=== PATIENT | female | born 1990 | race Caucasian/White ===

== ENCOUNTER 2016-10-25 00:31 | Emergency (ER) | payer MEDICAID ==
[~2016-10-25] VITALS: Ht 167.6 cm; Wt 52.0 kg
[~2016-10-25 00:31] MED LIST: KLON2TAB PO; LORTA5 PO; SUBO8MIS SL
[2016-10-25 00:32] VITALS: BP 137/78; PULSE 78; RESP 16; TEMP 97.6; O2SAT 98
--- NOTE | 2016-10-25 01:10 | PD ---
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 Patient says she has been very uncomfortable because of this burning/pain sensation. This is associated with dysuria when she urinates but it's there even when she is not urinating. She took one of her friends ciprofloxacin 3 tabs which has subsided the symptoms a little bit but she still has it. She has history of chlamydia in the past and she is concerned if she is happened again. She had unprotected sex with a new partner one week ago. Vital signs were otherwise stable. She does appear little anxious. [facility] Past Medical History Narrative Medical List of her past medical, surgical, social and family history was reviewed from the nursing note. ?: Not LMP: 2 DAYS AGO Menopausal: No : 1 Social History Alcohol Use: No Tobacco Use: Yes (1/2 PPD) Substance Use: No Allergies-Medications (Allergen,Severity, Reaction): Coded Allergies: No Known Allergies (Verified , 10/25/16) Comments No known drug allergies. Reported Meds & Prescriptions Reported Meds & Active Scripts Active Flagyl (Metronidazole) 250 Mg Tab 250 Mg PO TID 7 Days Doxycycline Hyclate 100 Mg Cap 100 Mg PO BID 7 Days Macrobid (Nitrofurantoin Monoh/Nitrofur Macro) 100 Mg Cap 100 Mg PO BID 7 Days Reported Xanax (Alprazolam) 0.5 Mg Tab 0.5 Mg PO BID PRN Narrative Medication List of her medications reviewed from the nursing note. Review of Systems Except as stated in HPI: all other systems reviewed are Neg Physical Exam Narrative GENERAL: Awake, alert, anxious SKIN: Warm and dry. HEAD: Atraumatic. Normocephalic. EYES: Pupils equal and round. No scleral icterus. No injection or drainage. ENT: No nasal bleeding or discharge. Mucous membranes pink and moist. NECK: Trachea midline. No JVD. CARDIOVASCULAR: Regular rate and rhythm. No murmur appreciated. RESPIRATORY: No accessory muscle use. Clear to auscultation. Breath sounds equal bilaterally. GASTROINTESTINAL: Abdomen soft, non-tender, nondistended. Hepatic and splenic margins not palpable. : Patient is clean shaved in the pubic area. Some folliculitis. No significant discharge on speculum exam. Swabs were collected. Positive CMT and adnexal tenderness. MUSCULOSKELETAL: No obvious deformities. No clubbing. No cyanosis. No edema. NEUROLOGICAL: Awake and alert. No obvious cranial nerve deficits. Motor grossly within normal limits. Normal speech. PSYCHIATRIC: Appropriate mood and affect; insight and judgment normal. Data Data Last Documented VS Orders Urinalysis - C+S If Indicated (10/25/16 01:33) Gc And Chlamydia Pcr (10/25/16 01:33) Wet Prep Profile (10/25/16 01:33) Urine Culture (10/25/16 01:50) Nitrofurantoin Monohyd Macrocr (Macrobid (10/25/16 02:15) Metronidazole (Flagyl) (10/25/16 03:00) Doxycycline (Vibramycin) (10/25/16 03:00) Ceftriaxone Inj (Rocephin Inj) (10/25/16 03:00) Labs Laboratory Tests Test 10/25/16 01:50 Urine Color YELLOW Urine Turbidity HAZY Urine pH 6.0 Urine Specific [place] 1.027 Urine Protein TRACE mg/dL Urine Glucose (UA) NEG mg/dL Urine Ketones NEG mg/dL Urine Occult Blood NEG Urine Nitrite NEG Urine Bilirubin NEG Urine Urobilinogen 2.0 MG/DL Urine Leukocyte Esterase SMALL Urine RBC 4 /hpf Urine WBC 16 /hpf Urine Squamous Epithelial 6 /hpf Cells Urine Bacteria RARE /hpf Urine Mucus FEW /lpf Microscopic Urinalysis Comment CULTURE INDICATED Clue Cells (Wet Prep) PRESENT Vaginal Trichomonas (Wet Prep) NONE SEEN Vaginal Yeast (Wet Prep) NONE SEEN Chlamydia trachomatis DNA NOT DETECTED (PCR) Neisseria gonorrhoeae DNA NOT DETECTED (PCR) MDM Medical Decision Making Medical Screen Exam Complete: Yes Emergency Medical Condition: Yes Medical Record Reviewed: Yes Differential Diagnosis STD, UTI, vaginitis Narrative Course 3:45 AM patient was given IM Rocephin, by mouth Macrobid, by mouth Flagyl and by mouth doxycycline. She was positive for clue cells. She will be discharged home on these prescriptions. Procedures EKG Prior to Arrival: No Diagnosis Primary Impression: UTI (urinary tract infection) Qualified Code: N30.00 - Acute cystitis without hematuria Additional Impression: Bacterial vaginosis Referrals: Primary Care Physician 1 week Additional Instructions: Please return to the ER if the condition worsens or any other new concerns. Otherwise follow-up with your primary care. Take the medications as per the prescription direction. Med/Other Pt SpecificInfo: Prescription(s) given Scripts Metronidazole (Flagyl)250 Mg [id number] Mg PO TID 7 Days Ref 0 Prov:Louann Thompson MD 10/25/16 Doxycycline Hyclate 100 Mg [id number] Mg PO BID 7 Days Ref 0 Prov:Louann Thompson MD 10/25/16 Nitrofurantoin Monohydrate Macrocrystals (Macrobid)100 Mg [id number] Mg PO BID 7 Days Ref 0 Prov:Louann Thompson MD 10/25/16 Disposition: DISCHARGE HOME Condition: Stable Louann Thompson MD Oct 25, 2016 01:10 Doxycycline Hyclate 100 Mg [id number] Mg PO BID 7 Days Ref 0 Prov:Louann Thompson MD 10/25/16 Nitrofurantoin Monohydrate Macrocrystals (Macrobid)100 Mg [id number] Mg PO BID 7 Days Ref 0 Prov:Louann Thompson MD 10/25/16 Disposition: 01 DISCHARGE HOME Condition: Louann Coffey MD Oct 25, 2016 01:10
[2016-10-25] MEDS ORDERED: ALPR.5 PO (01:15)
[2016-10-25 02:07] LABS: BACTERIA, URINE RARE /hpf; BLOOD, URINE NEG (NEG); COMMENT (UR) CULTURE INDICATED; CULTURE IF INDICATED CULTURE INDICATED; GLUCOSE,URINE NEG (NEG); KETONE, URINE NEG (NEG); MUCUS URINE FEW /lpf (OCC); NITRITE,URINE NEG (NEG); SQUAMOUS EPITHELIAL CELL URINE 6 /hpf (0-5); URINE COLOR YELLOW (YELLW/STRAW)
[2016-10-25] MEDS ORDERED: NITROFURANTOIN MONOHYD MACROCR 100 MG CAP PO ONE (02:15)
[2016-10-25] MEDS ORDERED: DOXYCYCLINE HYCLATE 100 MG CAP PO ONE (03:00)
[2016-10-25] MEDS ORDERED: cefTRIAXone 250 MG VIAL IM ONE (03:00)
[2016-10-25] MEDS ORDERED: metroNIDAZOLE 500 MG TAB PO ONE (03:00)
[2016-10-25 03:38] LABS: CHLAMYDIA PCR NOT DETECTED (NOT DETECT); NEISSERIA PCR NOT DETECTED (NOT DETECT)
[2016-10-25] MEDS ORDERED: METR250 PO (03:53)
[2016-10-25] MEDS ORDERED: MACR100C2 PO (03:53)
[2016-10-25] MEDS ORDERED: DOXY100C PO (03:53)
== END 2016-10-25 04:18 | disposition home or self-care (01) ==
LOC: NEPE 00:31
DX: N39.0 Urinary tract infection, site not specified (principal); N76.0 Acute vaginitis; F17.210 Nicotine dependence, cigarettes, uncomplicated
CPT/HCPCS: 81001; 87086; 87210; 87491; 87591; 96372; 99283; J0696

== ENCOUNTER 2017-06-19 18:52 | Emergency (ER) | payer MEDICAID ==
[~2017-06-19 18:52] MED LIST changes: +ALPR.5 PO; +DOXY100C PO; -KLON2TAB PO; -LORTA5 PO; +MACR100C2 PO; +METR250 PO; -SUBO8MIS SL
[2017-06-19 18:54] VITALS: BP 123/74; PULSE 78; RESP 16; TEMP 98.4; O2SAT 99
--- NOTE | 2017-06-19 21:09 | PD ---
HPI Chief Complaint: Related Problem Time Seen by Provider: 20:56 Travel History International Travel<30 days: No Contact w/Intl Traveler<30days: No Traveled to known affect area: No History of Present Illness HPI 27 years old female complains of low abdominal pain and low back pain. Patient states that the pain started yesterday. Patient states the pain is cramping pain intermittent pain localized to lower abdomen and low back area. Patient denies any pain radiation. Patient denies any dysuria or frequency. Patient denies any vaginal discharge or bleeding. Patient denies any fever chills. Patient states that she had vaginal bleeding for one day last week. Patient states that the vaginal bleeding stopped completely and she has not had any vaginal bleeding bleeding since then. Patient states that the bleeding was heavy. Patient states that she has history irregular menstruation period. Patient's 4 para 1. Patient states that her last menstruation period was 2 months ago. PFSH Past Medical History Anxiety: Yes (xanax prescription ) Diminished Hearing: No Tetanus Vaccination: Unknown Influenza Vaccination: No ?: LMP: 04/20/17 Menopausal: No : 5 Para: 1 Miscarriage: 2 : 1 Past Surgical History Surgical History: No Previous Surgery Social History Alcohol Use: No Tobacco Use: Yes (pack a week ) Substance Use: No Allergies-Medications (Allergen,Severity, Reaction): Coded Allergies: No Known Allergies (Verified Adverse Reaction, Unknown, 06/19/17) Reported Meds & Prescriptions Reported Meds & Active Scripts Active Reported Xanax (Alprazolam) 0.5 Mg Tab 0.5 Mg PO BID PRN Review of Systems General / Constitutional: No: Fever Eyes: No: Visual changes HENT: No: Headaches Cardiovascular: No: Chest Pain or Discomfort Respiratory: No: Shortness of Breath Gastrointestinal: Positive: Abdominal Pain Genitourinary: Positive: Pelvic Pain, No: Dysuria Musculoskeletal: No: Pain Skin: No Rash Neurologic: No: Weakness Psychiatric: No: Depression Endocrine: No: Polydipsia Hematologic/Lymphatic: No: Easy Bruising Physical Exam Narrative GENERAL: Well-nourished, well-developed patient. SKIN: Focused skin assessment warm/dry. HEAD: Normocephalic. EYES: No scleral icterus. No injection or drainage. NECK: Supple, trachea midline. No JVD or lymphadenopathy. CARDIOVASCULAR: Regular rate and rhythm without murmurs, gallops, or rubs. RESPIRATORY: Breath sounds equal bilaterally. No accessory muscle use. GASTROINTESTINAL: Abdomen soft, nondistended. Patient has mild tenderness on palpation lower abdomen. No rebound tenderness. No mass. MUSCULOSKELETAL: No cyanosis, or edema. BACK: Nontender without obvious deformity. No CVA tenderness. 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: Data Data Last Documented VS Vital Signs Date Time Temp Pulse Resp B/P (MAP) Pulse Ox O2 Delivery O2 Flow Rate FiO2 06/19/17 23:41 06/19/17 18:54 98.4 78 16 99 Orders Orders Beta Hcg (Quant/Titer) (06/19/17 21:04) Complete Blood Count With Diff (06/19/17 21:04) Basic Metabolic Panel (Bmp) (06/19/17 21:04) Complete Rh (06/19/17 21:04) Urinalysis - C+S If Indicated (06/19/17 21:04) Iv Access Insert/Monitor (06/19/17 21:04) Ondansetron Odt (Zofran Odt) (06/19/17 21:30) Ed Urine Pregnancytest Poc (06/19/17 21:31) Us Pelvis (Ques Preg/Ectopic) (06/19/17 ) Labs Laboratory Tests Test 06/19/17 21:21 White Blood Count 7.9 TH/MM3 Red Blood Count 4.68 MIL/MM3 Hemoglobin 13.5 GM/DL Hematocrit 39.7 % Mean Corpuscular Volume 84.9 FL Mean Corpuscular Hemoglobin 28.9 PG Mean Corpuscular Hemoglobin Concent 34.1 % Red Cell Distribution Width 12.7 % Platelet Count 262 TH/MM3 Mean Platelet Volume 8.0 FL Neutrophils (%) (Auto) 76.4 % Lymphocytes (%) (Auto) 17.0 % Monocytes (%) (Auto) 6.1 % Eosinophils (%) (Auto) 0.2 % Basophils (%) (Auto) 0.3 % Neutrophils # (Auto) 6.1 TH/MM3 Lymphocytes # (Auto) 1.3 TH/MM3 Monocytes # (Auto) 0.5 TH/MM3 Eosinophils # (Auto) 0.0 TH/MM3 Basophils # (Auto) 0.0 TH/MM3 CBC Comment DIFF FINAL Differential Comment Urine Color YELLOW Urine Turbidity CLEAR Urine pH 5.5 Urine Specific [place] 1.021 Urine Protein NEG mg/dL Urine Glucose (UA) NEG mg/dL Urine Ketones NEG mg/dL Urine Occult Blood NEG Urine Nitrite NEG Urine Bilirubin NEG Urine Urobilinogen LESS THAN 2.0 MG/DL Urine Leukocyte Esterase TRACE Urine RBC 1 /hpf Urine WBC 3 /hpf Urine Squamous Epithelial Cells 1 /hpf Urine Bacteria RARE /hpf Urine Mucus FEW /lpf Microscopic Urinalysis Comment CULT NOT INDICATED Blood Urea Nitrogen 10 MG/DL Creatinine 0.64 MG/DL Random Glucose 88 MG/DL Calcium Level 9.6 MG/DL Sodium Level 135 MEQ/L Potassium Level 3.6 MEQ/L Chloride Level 102 MEQ/L Carbon Dioxide Level 25.1 MEQ/L Anion Gap 8 MEQ/L Estimat Glomerular Filtration Rate 112 ML/MIN Human Chorionic Gonadotropin, Quant [id number] MIU/ML [facility] Medical Decision Making Medical Screen Exam Complete: Yes Emergency Medical Condition: Yes Interpretation(s) Last Impressions Pelvis Ultrasound 06/19/17 0000 Signed Impressions: Service Date/Time: June 22:02 - CONCLUSION: 1. Intrauterine at 11 weeks. Findings of subchorionic hemorrhage as well as fluid. Followup examination is recommended if clinically indicated. Denzel Boyle MD 23:17 PM. CBC within normal limit. BMP within normal limits. Beta hCG [id number]. UA is negative. Differential Diagnosis Differential diagnosis including pelvic pain during , threatened AB, incomplete AB, completed AB, ectopic . Narrative Course 27 years old female with altered vomiting low back pain. Patient is 2 months by date. Patient had heavy vaginal bleeding for one day last week. Diagnosis Primary Impression: Subchorionic hemorrhage Qualified Codes: O41.8X10 - Other specified disorders of amniotic fluid and membranes, first trimester, not applicable or unspecified; O46.8X1 - Other antepartum hemorrhage, first trimester Patient Instructions: General Instructions Additional Instructions: Advised vitamin with iron. Tylenol for pain. Follow-up with local OB. Advised patient to return if increased abdominal pain, pelvic pain, vaginal bleeding. Med/Other Pt SpecificInfo: No Meds Exist/No RX given Disposition: DISCHARGE HOME Condition: Stable Shawn Napier MD Jun 19, 2017 21:09
[2017-06-19] MEDS ORDERED: ONDANSETRON ODT 4 MG TAB PO ONE (21:30)
[2017-06-19 21:41] LABS: AUTOMATED NEUTROPHIL # 6.1 TH/MM3 (1.8-7.7); BASOPHIL % 0.3 % (0.0-2.0); EOSINOPHIL % 0.2 % (0.0-4.0); HEMATOCRIT 39.7 % (35.0-46.0); HEMO FLAGS DIFF FINAL; LYMPHOCYTE # 1.3 TH/MM3 (1.0-4.8); MEAN CELL VOLUME 84.9 FL (80.0-100.0); MEAN CORPUSCULAR HEMOGLOBIN 28.9 PG (27.0-34.0); MEAN CORPUSCULAR HGB CONC 34.1 % (32.0-36.0); MONO % 6.1 % (0.0-8.0); NEUT % 76.4 % (16.0-70.0); PLATELET COUNT 262 TH/MM3 (150-450); RED BLOOD COUNT 4.68 MIL/MM3 (4.00-5.30); RED CELL DISTRIBUTION WIDTH 12.7 % (11.6-17.2); WHITE BLOOD COUNT 7.9 TH/MM3 (4.0-11.0)
[2017-06-19 21:51] LABS: BACTERIA, URINE RARE /hpf; BLOOD, URINE NEG (NEG); COMMENT (UR) CULT NOT INDICATED; CULTURE IF INDICATED CULT NOT INDICATED; GLUCOSE,URINE NEG (NEG); KETONE, URINE NEG (NEG); MUCUS URINE FEW /lpf (OCC); NITRITE,URINE NEG (NEG); PH, URINE 5.5 (5.0-8.5); SQUAMOUS EPITHELIAL CELL URINE 1 /hpf (0-5); URINE COLOR YELLOW (YELLW/STRAW)
[2017-06-19 22:01] LABS: BICARBONATE 25.1 MEQ/L (21.0-32.0); POTASSIUM 3.6 MEQ/L (3.5-5.1)
--- NOTE | 2017-06-19 23:02 | RADRPT ---
EXAM DATE/TIME: 06/19/2017 22:02 [facility] COMPARISON: No previous studies available for comparison. INDICATIONS : Pelvic pain. LAB(S): Beta-hC MEDICAL HISTORY : . Miscarriage x 3. . Anxiety. SURGICAL HISTORY : None. ENCOUNTER: Initial ACUITY: 1 day PAIN SCORE: 4/10 LOCATION: Bilateral pelvis MEASUREMENTS: UTERUS: 12.6 x 9.8 x 7.1 cm ENDOMETRIAL STRIPE: >20 mm RIGHT OVARY: 3.8 x 2.7 x 2.0 cm LEFT OVARY: 3.3 x 2.4 x 1.8 cm FREE FLUID: No CROWN RUMP LENGTH: 4.2 cm = 11 WKS 0 DAYS FHR: 180 BPM FINDINGS: Ultrasound of the pelvis via transabdominal transvaginal approach demonstrates a single viable intrau terine with a crown-rump length of 4.2 cm corresponding with an 11 week gestation. Cardiac activity is identified at 180 beats per minute. No free fluid or adnexal masses are identified. There are findings of subchorionic hemorrhage with fluid. Examination of the right ovary demonstrates a 2.3 cm corpus luteum cyst. Examination of the left ovary demonstrates no abnormality. CONCLUSION: 1. Intrauterine at 11 weeks. Findings of subchorionic hemorrhage as well as fluid. Followup examination is recommended if clinically indicated. Denzel Boyle MD on June 19, 2017 at 22:53 Board Certified Radiologist. This report was verified electronically.
== END 2017-06-19 23:52 | disposition home or self-care (01) ==
LOC: NEPE 18:52
DX: O41.8X10 Other specified disorders of amniotic fluid and membranes, first trimester, not applicable or unspecified (principal); M54.5 Low back pain; F41.9 Anxiety disorder, unspecified; O99.331 Smoking (tobacco) complicating pregnancy, first trimester; Z3A.11 11 weeks gestation of pregnancy; Z34.91 Encounter for supervision of normal pregnancy, unspecified, first trimester
CPT/HCPCS: 76700; 80048; 81001; 84702; 84703; 85025; 99284

== ENCOUNTER 2017-09-26 15:48 | Emergency (ER) | payer OTHER, MEDICAID ==
[~2017-09-26] VITALS: Ht 170.2 cm; Wt 48.0 kg
[~2017-09-26 15:48] MED LIST changes: -DOXY100C PO; -MACR100C2 PO; -METR250 PO
[2017-09-26 15:56] VITALS: BP 123/76; PULSE 110; RESP 16; TEMP 98.5; O2SAT 98
[2017-09-26] MEDS ORDERED: METHOCARBAMOL 500 MG TAB PO ONE (16:15)
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
[2017-09-26 16:39] VITALS: PULSE 81
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
[2017-09-26] MEDS ORDERED: IBUP1TAB7 PO (17:02)
[2017-09-26] MEDS ORDERED: ROBA500T PO (17:02)
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
== END 2017-09-26 17:43 | disposition home or self-care (01) ==
LOC: MERGE 15:48 → PHEFT 15:48
DX: S16.1XXA Strain of muscle, fascia and tendon at neck level, initial encounter (principal); S59.912A Unspecified injury of left forearm, initial encounter; R07.89 Other chest pain; R51 Headache; V89.2XXA Person injured in unspecified motor-vehicle accident, traffic, initial encounter
CPT/HCPCS: 70450; 71045; 72125; 73090; 84703; 99284